=== PATIENT | male | born 1985 | race Caucasian/White ===

== ENCOUNTER 2023-06-11 17:38 | Emergency (ER) | payer OTHER, SELFPAY ==
--- NOTE | 2023-06-11 17:45 | DI.RAD.S_ITS ---
PROCEDURE: XR CHEST 1V INDICATIONS: chest pain TECHNIQUE: One view of the chest was acquired. COMPARISON: None. FINDINGS: Surgical changes and devices: None. Lungs and pleura: Lungs are clear. No pleural effusions or pneumothorax. Mediastinum: Mediastinal contours appear normal. Heart size is normal. Bones and chest wall: No suspicious bony lesions. Overlying soft tissues appear unremarkable. IMPRESSION: Portable chest within normal limits for age. Dictated by: Mercedez Bello M.D. on 06/11/2023 at 18:29 Approved by: Mercedez Bello M.D. on 06/11/2023 at 18:30
[2023-06-11 17:47] VITALS: BP 186/107; PULSE 80; RESP 20; TEMP 37.3; O2SAT 99; BMI 25.0
[2023-06-11] MEDS: ASPIRIN 81 MG CHEW TAB 324 MG PO (17:54)
[2023-06-11 18:29] LABS: PTT Partial Thromboplastin Tim 29 SECONDS (26-36)
[2023-06-11 18:43] LABS: Add Manual Diff / Slide Review NO; Basophils Absolute Auto 0 /uL (0-100); Basophils Percent Auto 0.9 % (0-2); Eosinophils Absolute Auto 100 /uL (0-450); Eosinophils Percent Auto 1.9 % (2-4); Hematocrit 42.8 % (41-53); Lymphocytes Absolute Auto 1400 /uL (1100-4500); Lymphocytes Percent Auto 25.8 % (25-40); Mean Corpuscular Hemoglobin 32.6 PG (26-34); Mean Corpuscular Volume 92.9 fL (80-100); Monocytes Absolute Auto 600 /uL (0-900); Monocytes Percent Auto 11.3 % (3-14); Neutrophils Absolute Auto 3400 /uL (1500-7000); Neutrophils Percent Auto 60.1 % (50-75); Platelet Count 179 X10^3/uL (150-400); Red Blood Cell Count 4.61 X10^6/uL (4.5-5.9); Red Cell Distribution Width 12.9 % (11.6-14.8); White Blood Cell Count 5.6 X10^3/uL (4.5-11.0)
[2023-06-11 18:53] LABS: Alanine Aminotransferase 30 IU/L (<50); Albumin 4.5 g/dL (3.5-5.0); Albumin Globulin Ratio 1.6 (1.0-2.8); Alkaline Phosphatase 98 U/L (38-126); Aspartate Aminotransferase 33 IU/L (17-59); Bilirubin Total 0.7 mg/dL (0.2-1.3); Blood Urea Nitrogen 9 mg/dL (9-20); Calcium 9.1 mg/dL (8.4-10.2); Carbon Dioxide 25 mmol/L (22-32); Chloride 101 mmol/L (98-107); Creatine Kinase 121 U/L (55-170); Estimated Glomerular Filt Rate > 60 mL/min (>60); Globulin 2.9 g/dL (1.7-4.1); Glucose 106 mg/dL (70-100); HEMOLYSIS < 15 (0-50); Lipase 101 U/L (23-300); Magnesium 1.9 mg/dL (1.6-2.3); Potassium 3.6 mmol/L (3.4-5.1); Sodium 135 mmol/L (137-145); Total Protein 7.4 g/dL (6.3-8.2)
[2023-06-11 19:03] LABS: Troponin I < 0.012 ng/mL (0.01-0.034)
[2023-06-11 19:17] LABS: INR 0.9 (0.9-1.3); Prothrombin Time 10.8 SECONDS (10.1-12.7)
[2023-06-11 20:15] VITALS: BP 187/114; RESP 18; TEMP 36.5; O2SAT 96
[2023-06-11 23:56] VITALS: BP 187/111; PULSE 65; RESP 16; O2SAT 97
[2023-06-12 00:37] VITALS: PULSE 74; RESP 15; O2SAT 98
[2023-06-12 00:38] VITALS: BP 158/99; PULSE 71; RESP 16; O2SAT 99
--- NOTE | 2023-06-12 00:59 | ED.CHESTPAIN ---
HPI - Chest Pain General Chief Complaint: Chest Pain Stated Complaint: chest pain Time Seen by Provider: 06/12/23 00:59 Source: patient Mode of arrival: Ambulatory Limitations: no limitations History of Present Illness HPI narrative: Patient 38-year-old male without significant past medical history presenting today with left arm pain. He reports that for the last couple of days he is noticed some pins and needles down his left arm. No weakness. He denies any chest pain palpitations shortness of breath. He was able to go over to the [facility] today and walk around without any trouble. However he was having some more symptoms in his left arm of tingling when he Goggled left arm pain is suggested he go to the ED. he denies any family history of coronary artery disease he does admit to vaping. Related Data Allergies Allergy/AdvReac Type Severity Reaction Status Date / Time No Known Drug Allergies Allergy Verified 06/11/23 17:47 Review of Systems Review of Systems ROS Unobtainable: All systems reviewed & are unremarkable except as noted in HPI and below Patient History Social History Smoking Status: Current every day smoker Smoking Status: Current every day smoker tobacco type: vaping alcohol intake frequency: 3 or more drinks per day Substance Use Type: does not use Exam Initial Vital Signs Initial Vital Signs: Vital Signs Temperature 99.1 F 06/11/23 17:47 Pulse Rate 80 06/11/23 17:47 Respiratory Rate 20 06/11/23 17:47 Blood Pressure 186/107 H 06/11/23 17:47 Pulse Oximetry 99 06/11/23 17:47 Oxygen Delivery Method Room Air 06/11/23 17:47 GENERAL: Alert pleasant well-appearing 38-year-old male and in no acute distress. HEENT: Head atraumatic,EOMI, pupils reactive, face symmetric, moist mucous membranes CARDIOVASCULAR: Regular rate and rhythm without murmurs, rubs or gallops. RESPIRATORY: Breath sounds equal bilaterally, no wheezes rales or rhonchi. ABDOMEN: Soft, nontender. Normoactive bowel sounds all 4 quadrants. No guarding or rebound. EXTREMITIES: Normal range of motion, no clubbing or edema. Calves are nontender non erythematous Neurovascularly intact NEUROLOGICAL: Alert and oriented x4.Normal gait and speech. Cranial nerves II through XII grossly intact. Business [employer] Sales [employer] strength equal bilaterally SKIN: Warm, dry, no laceration, no petechiae, no rashes or lesions. Scores HEART Score Heart Score history: Slightly Suspicious Heart Score EKG: Normal Heart Score Age: < 45 years old Heart Score risk factors: No known risk factors Heart Score troponin: < or = to normal limit Heart Score Total: 0 PERC Score Age greater than or equal to 50 years: No Heart rate greater than or equal to 100 bpm: No Room Air O2 Sat less than 95%: No Unilateral leg swelling: No Recent trauma or surgery: No Hemoptysis: No Prior PE or DVT: No Hormone Use: No Total PERC Score: 0 Course Orders Ordered: Discontinued Medications Aspirin (Aspirin 81 Mg Chew Tab) 324 mg PO NOW ONE Stop: 06/11/23 17:46 Last Admin: 06/11/23 17:54 Dose: 324 mg Documented By: SANYA Vital Signs Vital signs: Vital Signs - 8 hr 06/11/23 23:56 06/12/23 00:37 06/12/23 00:38 Pulse Rate 65 74 Respiratory Rate 16 15 Blood Pressure 187/111 H 158/99 H Pulse Oximetry 97 98 Oxygen Delivery Method Room Air 06/12/23 00:38 06/12/23 01:00 06/12/23 01:00 Pulse Rate 71 60 Respiratory Rate 16 21 Blood Pressure 155/100 H Pulse Oximetry 99 99 Oxygen Delivery Method 06/12/23 01:15 06/12/23 01:15 Pulse Rate 61 Respiratory Rate Blood Pressure 153/101 H Pulse Oximetry 98 Oxygen Delivery Method MDM - Chest Pain Lab Data 06/11/23 18:08 06/11/23 18:08 Labs: Lab Results 06/11/23 06/11/23 06/11/23 Range/Units 18:08 18:08 18:08 WBC 5.6 (4.5-11.0) X10^3/uL RBC 4.61 (4.5-5.9) X10^6/uL Hgb 15.0 (13.5-17.5) g/dL Hct 42.8 (41-53) % MCV 92.9 (80-100) fL MCH 32.6 (26-34) PG MCHC 35.0 (30-36) % RDW 12.9 (11.6-14.8) % Plt Count 179 (150-400) X10^3/uL Neut % (Auto) 60.1 (50-75) % Lymph % (Auto) 25.8 (25-40) % Mcculloch % (Auto) 11.3 (3-14) % Eos % (Auto) 1.9 L (2-4) % Baso % (Auto) 0.9 (0-2) % Neut # (Auto) 3400 (1194-6944) /uL Lymph # (Auto) 1400 (9332-7150) /uL M[place]ulloch # (Auto) 600 (0-900) /uL Eos # (Auto) 100 (0-450) /uL Baso # (Auto) 0 (0-100) /uL PT 10.8 (10.1-12.7) SECONDS INR 0.9 (0.9-1.3) APTT 29 (26-36) SECONDS Sodium 135 L (137-145) mmol/L Potassium 3.6 (3.4-5.1) mmol/L Chloride 101 (98-107) mmol/L Carbon Dioxide 25 (22-32) mmol/L BUN 9 (9-20) mg/dL Creatinine 0.75 (0.66-1.25) mg/dL Estimated GFR > 60 (>60) mL/min BUN/Creatinine Ratio 12.0 (6-22) Glucose 106 H (70-100) mg/dL Calcium 9.1 (8.4-10.2) mg/dL Magnesium 1.9 (1.6-2.3) mg/dL Total Bilirubin 0.7 (0.2-1.3) mg/dL AST 33 (17-59) IU/L ALT 30 (<50) IU/L Alkaline Phosphatase 98 (38-126) U/L Total Creatine Kinase 121 (55-170) U/L Troponin I < 0.012 (0.01-0.034) ng/mL Total Protein 7.4 (6.3-8.2) g/dL Albumin 4.5 (3.5-5.0) g/dL Globulin 2.9 (1.7-4.1) g/dL Albumin/Globulin Ratio 1.6 (1.0-2.8) Lipase 101 (23-300) U/L Imaging Data Chest x-ray: Radiologist's Impression: PROCEDURE:? XR CHEST 1V ? INDICATIONS:? chest pain ? TECHNIQUE:? One view of the chest was acquired.? ? COMPARISON:? None. ? FINDINGS:? ? Surgical changes and devices:? None.? ? Lungs and pleura:? Lungs are clear.? No pleural effusions or pneumothorax.? ? Mediastinum:? Mediastinal contours appear normal.? Heart size is normal.? ? Bones and chest wall:? No suspicious bony lesions.? Overlying soft tissues appear unremarkable.? ? ? IMPRESSION:? Portable chest within normal limits for age. ? ? Dictated by: Mercedez Bello M.D. on 06/11/2023 at 18:29 ? ECG Data Interpretation: Normal sinus rhythm rate 80 VA interval 160 QRS [address] changes no T-wave inversions no priors to compare. Q-waves noted in V2 MDM Narrative Medical decision making narrative: Patient 38-year-old male without significant past medical history presenting today with left arm tingling. Symptoms are more consistent with a peripheral neuropathy rather than coronary artery disease. He has no chest pain or shortness of breath no actual weakness. He was able to walk pretty far today without any problems. Blood work is overall reassuring negative troponin. EKG does not show any acute changes. I suspect more of like a muscle spasm or peripheral neuropathy rather than other etiology. They did travel from [facility] no suspicion for pulmonary embolism. Discharge Plan Departure Patient Disposition: Home Clinical Impression: Peripheral neuropathy, Atypical chest pain Instructions: DI for Atypical Chest Pain, DI for Peripheral Neuropathy Activity Restrictions/Additional Instructions: *You have been diagnosed with peripheral neuropathy *What to do: At this time I suspect you have more of a pinched nerve. However please check your blood pressure 1 to 2 times daily record it and talk with your PCP about your findings. He may or may not require blood pressure medication. *Continue to take medications as directed Tylenol Motrin if needed for pain *Follow up with your primary care provider in 2-3 days or call [phone] *Return to ER if you should have increasing weakness pain chest pain shortness of breath palpitations or any new, worsening or concerning symptoms Stand Alone Forms: Patient Portal/API
[2023-06-12 01:00] VITALS: BP 155/100; PULSE 60; RESP 21; O2SAT 99
[2023-06-12 01:15] VITALS: BP 153/101; PULSE 61; O2SAT 98
== END 2023-06-12 01:19 | disposition home or self-care (01) ==
PROVIDERS: Emergency Medicine; Emergency Provider Emergency Medicine
DX: R07.89 Other chest pain (principal); G62.9 Polyneuropathy, unspecified
CPT/HCPCS: 36415; 71045; 80053; 82550; 83690; 83735; 84484; 85025; 85610; 85730; 93005; 93010; 99284